=== PATIENT | female | born 1990 | race Caucasian/White ===

== ENCOUNTER 2018-01-24 11:27 | Emergency (ER) | payer OTHER ==
[~2018-01-24] VITALS: Ht 170.2 cm; Wt 59.0 kg
[~2018-01-24 11:27] MED LIST: AMOXICILLIN875 M1 PO; AMOXIL500 MG PO; BENTYL20 MG PO; INDOMETHACIN25 M1 PO; INDOMETHACIN50 M1 PO; KEFLEX500 MG PO; MECLIZINE25 MG PO; NORCO 5-325 TA1 EACH PO; PERCOCET 5-3251 EACH PO; TRAMADOL50 MG PO; VICODIN 5-3001 EACH PO; ZOFRAN4 M1 PO
[2018-01-24 12:39] LABS: ABSOLUTE BASOPHIL COUNT 0 /CUMM (0.0-0.2); ABSOLUTE EOSINOPHIL COUNT 0 /CUMM (0.0-0.7); ABSOLUTE GRANULOCYTE CT 6.6 /CUMM (1.4-6.5); ABSOLUTE LYMPH COUNT 1.6 /CUMM (1.2-3.4); ABSOLUTE MONOCYTE COUNT 0.6 /CUMM (0.10-0.60); BASOPHIL % 0.3 % (0.0-2.0); EOSINOPHIL % 0.4 % (0-5); GRANULOCYTE % 75.3 % (42.2-75.2); HEMATOCRIT 42.8 % (37-47); MEAN CORPUSCULAR HGB 30.3 PG (27.0-31.0); MEAN CORPUSCULAR HGB CONC 33.5 G/DL (33.0-37.0); MEAN CORPUSCULAR VOLUME 90.4 FL (81.0-99.0); MEAN PLATELET VOLUME 7.4 FL (7.4-10.4); PLATELET COUNT 287 /CUMM (130-400); RBC DISTRIBUTION WIDTH 13.1 % (11.5-14.5); RED BLOOD CELL CT 4.74 /CUMM (4.20-5.40); WHITE BLOOD CELL COUNT 8.8 /CUMM (4.8-10.8)
--- NOTE | 2018-01-24 13:41 | RADIOLOGY REPORT ---
EXAMINATION: XR CHEST CLINICAL INFORMATION: Chest pain, shortness of breath COMPARISON: 01/07/2018 TECHNIQUE: 2 views of the chest were obtained. FINDINGS: The lungs are hyperinflated but clear without consolidation or atelectasis. No evidence of pleural effusion or pneumothorax. The heart size is normal. IMPRESSION: Hyperinflation. The lungs are clear.
--- NOTE | 2018-01-24 14:55 | ED CARDIAC/CP/PALPITATIONS ---
History of Present Illness General Chief Complaint: Chest Pain Stated Complaint: CP,SOB Source: patient, family, old records Exam Limitations: no limitations Vital Signs & Intake/Output Vital Signs & Intake/Output Vital Signs Date Time Temp Pulse Resp B/P B/P Pulse O2 O2 Flow FiO2 Mean Ox Delivery Rate 01/24 1604 99.1 72 18 109/54 97 Room Air 01/24 1218 97.6 95 22 105/72 95 Room Air Allergies Coded Allergies: NO KNOWN ALLERGIES (08/08/11) Reconcile Medications Hydrocodone/Acetaminophen ([place] 5-325 Tablet) 5 MG-325 MG TABLET 1-2 TAB PO Q6 pain Hydromorphone HCl (Dilaudid) 2 MG TABLET 1 TAB PO BIDP PRN PAIN Indomethacin 50 MG CAPSULE 1 CAP PO TID PRN CHEST PAIN with food Indomethacin 25 MG CAPSULE 1 CAP PO TID PERICARDITIS with food Ondansetron (Zofran Odt) 4 MG TAB.RAPDIS 1 TAB SL TID PRN NAUSEA Triage Note: PT TO ER C/O CHEST PAIN, PT STATES THAT SHE WAS HERE 2 WEEKS AGO AND WAS TOLD SHE HAS FLUID AROUND HER HEART.. PT STATES SHE IS VERY SOB AND CANT SLEEP AT NIGHT. 03/22 CP Triage Nurses Notes Reviewed? yes Onset: Abrupt Duration: week(s):, constant Timing: recent history Quality/Severity: moderate, severe, aching Location: central Radiation: no radiation Activities at Onset: none Associated Symptoms: denies : No Patient currently breastfeeds: No HPI: 27 year old female recently diagnosed with pericarditis presentsto the ERfor continued L sided nonradiating chestpain x 3 weeks a/wshortness of breath. no cough. pain is worse laying back. she has been taking indocin without improvement.she has not followed up [facility] cardiology.no dizziness, lightheadedness, palpitaitons,abdpain. thepain has been making her nauseous. no vomiting. Patient has family history of pericarditis. Patient denies hemoptysis, recent travel, leg swelling, history of blood clots. Past History Travel History Traveled to [place] past 21 day No Medical History Any Pertinent Medical History? 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 No Review of Systems Review of Systems Constitutional: Reports: see HPI. Comments Review of systems: See HPI, All other systems negative. Constitutional, no chills no fever HEENT: no sore throat no congestion Cardiovascular: chest pain , no palpitation Skin: no rashes, no change in skin Respiratory: dyspnea no cough no sputum no hemoptysis GI: No nausea no vomiting, no diarrhea, no bloating/constipation : No dysuria No hematuria, no frequency Muscle skeletal: No joint pain, no back pain Neurologic: , no headache Heme/endocrine: No bruising Immunology: No lymphadenopathy Physical Exam Physical Exam General Appearance: well developed/nourished, no apparent distress, alert Cardiovascular: regular rate/rhythm Comments: Well-developed well-nourished person in no acute distress HEENT: Normal EENT exam; PERRL, EOMI,HEAD is atraumatic. moist mucous membranes. Neck: Supple, normal range of motion Back: Nontender, no CVA tenderness. Full range of motion Cardiovascular: Regular rate and rhythms no murmurs rubs or gallops, normal JVP Respiratory: Left chest wall tenderness no crepitus.There were no bony deformities, no asymmetry. No respiratory distress. Patient speaking in full complete sentences. Breath sounds clear to auscultation bilaterally: NO W/R/R Abdomen: Soft, nontender nondistended, no appreciable organomegaly. Normal bowel sounds. No rebound/guarding, Extremity: No edema, full range of motion of extremities Neuro: Alert oriented x3, motor sensory normal, . There were no obvious focal neurologic abnormalities. Skin: No appreciable rash on exposed skin, skin is warm and dry. Psych: Mood and affect is normal, memory and judgment is normal. Core Measures ACS in differential dx? Yes CVA/TIA Diagnosis No Sepsis Present: No Sepsis Focused Exam Completed? No Progress Differential Diagnosis: AMI, CHF/pulm edema, pericarditis, pneumonia, pneumothorax, pulmonary embolism, PVCs/PACs, unstable angina Plan of Care: Orders Procedure Date/time Status Add-on Test (ER Only) 01/24 1545 Active HUMAN BETA HCG SCREEN 01/24 1230 Complete TROPONIN LEVEL 01/24 1221 Complete MAGNESIUM 01/24 1221 Complete D-DIMER 01/24 1221 Complete CBC WITHOUT DIFFERENTIAL 01/24 1221 Complete BASIC METABOLIC PANEL 01/24 1221 Complete EKG 01/24 1206 Active Laboratory Tests 01/24/18 1230: Anion Gap 12, Estimated GFR > 60, BUN/Creatinine Ratio 18.3, Glucose 79, Calcium 9.7, Magnesium 1.9, Troponin I < 0.01, Total Beta HCG NEGATIVE, D-Dimer High Sensitivty < 200, CBC w Diff NO MAN DIFF REQ, RBC 4.74, MCV 90.4, MCH 30.3, MCHC 33.5, RDW 13.1, MPV 7.4, Gran % 75.3 H, Lymphocytes % 17.6 L, Monocytes % 6.4, Eosinophils % 0.4, Basophils % 0.3, Absolute Granulocytes 6.6 H, Absolute Lymphocytes 1.6, Absolute Monocytes 0.6, Absolute Eosinophils 0, Absolute Basophils 0 Labs ordered old records reviewed patient medicated with morphine 4 mg IV and discussed with her at length all lab results x-ray findings old records from patient's previous visit was reviewed. Repeat evaluation patient reports pain improved with morphine pending CAT scan On repeat evaluation discussed with the patient her CAT scan findings she is feeling improved with pain medication I advised close follow-up as scheduled with Dr. Kim who she is seeing for an echocardiogram return precautions were discussed at length she is nontoxic appearing case discussed with Dr. Rich agrees with plan Diagnostic Imaging: Viewed by Me: Radiology Read, CT Scan. Discussed w/RAD: Radiology Read, CT Scan. Radiology Impression: PATIENT: DAFNE RIBERA PRESENT AGE: 27 PATIENT ACCOUNT NO: [id number] : 89 LOCATION: [facility] ORDERING PHYSICIAN: Luís Rich MD SERVICE DATE: 01/24/18 EXAM TYPE : RAD - XRY-CHEST XRAY, TWO VIEWS EXAMINATION: XR CHEST CLINICAL INFORMATION: Chest pain, shortness of breath COMPARISON: 01/07/2018 TECHNIQUE: 2 views of the chest were obtained. FINDINGS: The lungs are hyperinflated but clear without consolidation or atelectasis. No evidence of pleural effusion or pneumothorax. The heart size is normal. IMPRESSION: Hyperinflation. The lungs are clear. DICTATED BY: Elvin Moy MD DATE/TIME DICTATED:01/24/181335 RELAYS DRAFTSPERSON:JEREMIAH DATE/TIME TRANSCRIBED:01/24/181335 CONFIDENTIAL, DO NOT COPY WITHOUT APPROPRIATE AUTHORIZATION. 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 Zofran for nausea. Dilaudid for breakthrough pain use caution this is a narcotic and highly addictive. No driving or drink alcohol while taking. Return with any concerns. Departure Forms: Customer Survey General Discharge Information Prescriptions: Current Visit Scripts Hydromorphone HCl (Dilaudid) 1 TAB PO BIDP PRN PAIN #10 TAB Ondansetron (Zofran Odt) 1 TAB SL TID PRN NAUSEA #10 TAB Critical Care Note Critical Care Note Critical Care Time: non-applicable
[2018-01-24 16:04] VITALS: BP 109/54
--- NOTE | 2018-01-24 17:29 | CT SCAN REPORT ---
EXAMINATION: CT CHEST WITH CONTRAST CLINICAL INFORMATION: Pericardial effusion. COMPARISON: Chest x-rays dated 01/24/2018, 01/07/2018 TECHNIQUE: Multidetector volumetric CT imaging of the chest was obtained after the administration of 95 mL of Optiray 320 intravenous contrast without immediate adverse reactions. Axial MIP volume rendering provided. Sagittal and coronal reformatted images were obtained. DLP: 161.95 mGy-cm FINDINGS: LUNGS: The lungs are clear with no evidence of inflammation or nodules. MEDIASTINUM: Normal cardiac size. No pericardial effusion. The thoracic aorta and pulmonary arteries are normal in diameter. The trachea and maikol are patent. No mediastinal, hilar or axillary adenopathy. PLEURA: There is no pleural effusion. No pleural mass or thickening. AXILLA: No lymphadenopathy. UPPER ABDOMEN: Unremarkable. OSSEOUS STRUCTURES: Unremarkable. IMPRESSION: No acute pulmonary findings. No pericardial effusion.
[2018-01-24] MEDS ORDERED: ZOFRAN ODT4 M1 SL (17:37)
[2018-01-24] MEDS ORDERED: DILAUDID2 M1 PO (17:37)
== END 2018-01-24 17:46 ==
LOC: ERH 11:27
PROVIDERS: Emergency Medicine
DX: R07.9 Chest pain, unspecified (principal)
CPT/HCPCS: 71046; 93005; 93010; 96374; 96376

== ENCOUNTER 2018-06-29 09:06 | Emergency (ER) | payer OTHER ==
[~2018-06-29 09:06] MED LIST changes: +DILAUDID2 M1 PO; +ZOFRAN ODT4 M1 SL
[2018-06-29 11:36] LABS: ABSOLUTE BASOPHIL COUNT 0 /CUMM (0.0-0.2); ABSOLUTE EOSINOPHIL COUNT 0 /CUMM (0.0-0.7); ABSOLUTE GRANULOCYTE CT 6.7 /CUMM (1.4-6.5); ABSOLUTE LYMPH COUNT 0.9 /CUMM (1.2-3.4); ABSOLUTE MONOCYTE COUNT 0.3 /CUMM (0.10-0.60); BASOPHIL % 0.6 % (0.0-2.0); EOSINOPHIL % 0.2 % (0-5); HEMATOCRIT 42.5 % (37-47); MEAN CORPUSCULAR HGB 30.8 PG (27.0-31.0); MEAN CORPUSCULAR HGB CONC 34.3 G/DL (33.0-37.0); MEAN CORPUSCULAR VOLUME 89.7 FL (81.0-99.0); MEAN PLATELET VOLUME 7.5 FL (7.4-10.4); PLATELET COUNT 336 /CUMM (130-400); RBC DISTRIBUTION WIDTH 13.9 % (11.5-14.5); RED BLOOD CELL CT 4.74 /CUMM (4.20-5.40)
--- NOTE | 2018-06-29 12:54 | ED GENERAL ADULT ---
History of Present Illness General Chief Complaint: Nausea, Vomiting, Diarrhea Stated Complaint: KIP VOMITING SINCE 2AM Source: patient, family, old records Exam Limitations: no limitations Vital Signs & Intake/Output Vital Signs & Intake/Output Vital Signs Date Time Temp Pulse Resp B/P B/P Pulse O2 O2 Flow FiO2 Mean Ox Delivery Rate 06/29 0937 98.2 88 16 108/72 98 Room Air Allergies Coded Allergies: NO KNOWN ALLERGIES (08/08/11) Reconcile Medications No Known Home Medications Triage Note: PT KIP FROM HOME WITH VOMITING SINCE 2AM. STATES THAT SHE HAS NOT VOMITED RECENTLY, AND IS NOW ALL STOMACH CONTENTS. C/O DIFFUSE ABD PAIN FROM THE VOMITING. DENIES ANY RECENT SICK CONTACTS, TRAVEL, OR FOOD THAT COULD HAVE MADE HER SICK Triage Nurses Notes Reviewed? yes : No Patient currently breastfeeds: No HPI: This is a 28-year-old woman with history of tubal ligation, vertigo, presenting to the emergency department with 12 hours of nausea with vomiting and diarrhea. Nausea is nonbilious, nonbloody. Diarrhea is likewise nonbloody with no mucus. Patient states that she has had similar symptoms in the past. She does not identify any clear trigger or sick contact or suspicious travel. She states that after several episodes of vomiting she developed epigastric abdominal discomfort. She states that the pain is moderate in intensity, not related to position, nonradiating. She has been unable to tolerate p.o. since developing this nausea. She denies any chest pain, difficulty breathing. She denies any dysuria, vaginal discharge. She is currently on her period. She arrives with her grandmother, no acute distress. Past History Travel History Traveled to [place] past 21 day No Medical History Any Pertinent Medical History? 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 No Review of Systems Review of Systems Constitutional: Reports: no symptoms. EENTM: Reports: no symptoms. Respiratory: Reports: no symptoms. Cardiovascular: Reports: no symptoms. GI: Reports: see HPI, abdominal pain, diarrhea, nausea, vomiting. Genitourinary: Reports: no symptoms. Musculoskeletal: Reports: no symptoms. Skin: Reports: no symptoms. Neurological/Psychological: Reports: no symptoms. Hematologic/Endocrine: Reports: no symptoms. Physical Exam Physical Exam General Appearance: well developed/nourished, no apparent distress, alert, comfortable Head: atraumatic, normal appearance Eyes: Bilateral: normal appearance, PERRL, EOMI. Ears, Nose, Throat: normal pharynx, normal ENT inspection Neck: normal inspection, supple, full range of motion Respiratory: normal breath sounds, chest non-tender, no respiratory distress, lungs clear Cardiovascular: regular rate/rhythm, normal peripheral pulses Gastrointestinal: normal bowel sounds, soft, non-tender, abnormal bowel sounds Rectal: deferred Back: normal inspection, normal range of motion Extremities: normal inspection, normal capillary refill, normal range of motion, no edema Neurologic/Psych: no motor/sensory deficits, awake, alert, oriented x 3 Skin: intact, normal color, warm/dry Comments: Well-appearing young woman, no acute distress. No tenderness to abdomen, no distention, no guarding. Core Measures ACS in differential dx? No CVA/TIA Diagnosis: No Sepsis Present: No Sepsis Focused Exam Completed? No Progress Differential Diagnoses I considered the following diagnoses in my evaluation of the patient: In this otherwise healthy 28-year-old, clinically suspect gastroenteritis. Low suspicion for acute appendicitis, ectopic , pancreatitis, biliary disease, diverticulitis or other intra-abdominal infection. Low suspicion also for acute cardiopulmonary process. Mild concern for metabolic derangement given multiple episodes of vomiting without good p.o. intake. Plan of Care: Orders Procedure Date/time Status URINE 06/29 951 Active URINALYSIS 06/29 951 Active LIPASE 06/29 951 Complete COMPREHENSIVE METABOLIC PANEL 06/29 951 Complete CBC WITHOUT DIFFERENTIAL 06/29 951 Complete Laboratory Tests 06/29/18 1130: Anion Gap 9, Estimated GFR > 60, BUN/Creatinine Ratio 15.0, Glucose 88, Calcium 9.3, Total Bilirubin 0.5, AST 21, ALT 29, Alkaline Phosphatase 90, Total Protein 7.3, Albumin 4.4, Globulin 2.9, Albumin/Globulin Ratio 1.5, Lipase 27, CBC w Diff NO MAN DIFF REQ, RBC 4.74, MCV 89.7, MCH 30.8, MCHC 34.3, RDW 13.9, MPV 7.5 , Gran % 84.0 H, Lymphocytes % 11.7 L, Monocytes % 3.5, Eosinophils % 0.2, Basophils % 0.6, Absolute Granulocytes 6.7 H, Absolute Lymphocytes 0.9 L, Absolute Monocytes 0.3, Absolute Eosinophils 0, Absolute Basophils 0 Plan for labs, IV fluids, symptom control, reassessment. No indication for cross-sectional imaging at this time given benign abdominal exam and HPI features. Labs are unremarkable with no white count, no metabolic derangement. IV established patient administered crystalloid with Zofran. Plan for p.o. challenge, reassessment. Patient much improved following IV fluids and Zofran. sHe is able to tolerate p.o. without difficulty. She is discharged home with return precautions and follow-up instructions. Initial ED EKG: none Departure Departure Time of Disposition: 1448 Disposition: HOME OR SELF CARE Condition: Stable Clinical Impression Primary Impression: Nausea, vomiting and diarrhea Referrals: Zoey Dale APRN (PCP/Family) Additional Instructions: Thank you for coming to [facility] today. Please take the medication as prescribed. Please eat a simple diet and drink plenty of water for the next few days. Return to the emergency department if your symptoms worsen or you develop any new symptoms such as chest pain or shortness of breath or severe abdominal pain Departure Forms: Customer Survey General Discharge Information Prescriptions: Current Visit Scripts Ondansetron HCl (Zofran) 1 TAB PO Q6 PRN NAUSEA/VOMITING #12 TAB Critical Care Note Critical Care Note Critical Care Time: non-applicable
[2018-06-29] MEDS ORDERED: ZOFRAN4 M2 PO (14:51)
[2018-06-29 15:10] VITALS: BP 116/61
== END 2018-06-29 15:43 ==
LOC: ERH 09:06
PROVIDERS: Physician Assistant Medical
DX: R11.2 Nausea with vomiting, unspecified (principal); R19.7 Diarrhea, unspecified; R42 Dizziness and giddiness
CPT/HCPCS: 81025; 96374; J2405